=== PATIENT | female | born 1990 | race Two or more races ===

== ENCOUNTER 2017-11-23 22:49 | Emergency (ER) | payer SELFPAY ==
[~2017-11-23] VITALS: Ht 157.5 cm; Wt 58.0 kg
[2017-11-23 23:28] VITALS: BP 96/57
== END 2017-11-24 02:44 | disposition left against medical advice (07) ==
LOC: EDBD 22:49 → ER 22:49
DX: R10.9 Unspecified abdominal pain (principal); Z53.21 Procedure and treatment not carried out due to patient leaving prior to being seen by health care provider

== ENCOUNTER 2018-05-07 11:23 | Observation (INO) | payer OTHER ==
[~2018-05-07 11:23] MED LIST: FOLI20CA MT; PREN-142 MT
== END 2018-05-07 14:00 | disposition home or self-care (01) ==
LOC: L&D 11:23
PROVIDERS: ADMIT Specialist; ATTEND Specialist
DX: O42.913 Preterm premature rupture of membranes, unspecified as to length of time between rupture and onset of labor, third trimester (principal); Z3A.31 31 weeks gestation of pregnancy
CPT/HCPCS: 76815; G0378; 99281

== ENCOUNTER 2018-05-25 23:11 | Observation (INO) | payer OTHER ==
[~2018-05-25] VITALS: Ht 160 cm; Wt 68.9 kg
[2018-05-25] MEDS ORDERED: FERR236T3 MT (23:52)
== END 2018-05-26 02:30 | disposition home or self-care (01) ==
LOC: 8 EST LDRP 23:11
PROVIDERS: ADMIT Specialist; ATTEND Specialist
DX: O36.8130 Decreased fetal movements, third trimester, not applicable or unspecified (principal); O26.893 Other specified pregnancy related conditions, third trimester; N89.8 Other specified noninflammatory disorders of vagina; Z3A.33 33 weeks gestation of pregnancy
CPT/HCPCS: 76815; 76818; 99281; G0378

== ENCOUNTER 2018-06-07 21:59 | Observation (INO) | payer OTHER ==
[~2018-06-07] VITALS: Ht 3 cm; Wt 72.6 kg
[~2018-06-07 21:59] MED LIST changes: +FERR236T3 MT; -FOLI20CA MT
[2018-06-08 02:03] LABS: CLARITY URINE CLEAR (CLEAR); COLOR URINE YELLOW (YELLOW); KETONES URINE NEGATIVE (NEGATIVE); LEUKOCYTE ESTERASE URINE TRACE (NEGATIVE); NITRITE URINE NEGATIVE (NEGATIVE); OCCULT BLOOD URINE NEGATIVE (NEGATIVE); PH URINE 6.5 (4.5-8.0); PROTEIN URINE NEGATIVE (NEGATIVE); SPECIFIC GRAVITY URINE 1.002 (1.005-1.030); UROBILINOGEN URINE 0.2 E.U./dL (0.2-1.0)
== END 2018-06-08 03:00 | disposition home or self-care (01) ==
LOC: 8 EST LDRP 21:59
PROVIDERS: ADMIT Specialist; ATTEND Specialist
DX: O36.8130 Decreased fetal movements, third trimester, not applicable or unspecified (principal); O62.9 Abnormality of forces of labor, unspecified; Z3A.35 35 weeks gestation of pregnancy
CPT/HCPCS: 76815; 76818; 81003; 99281; G0378

== ENCOUNTER 2018-06-22 18:27 | Observation (INO) | payer OTHER ==
[~2018-06-22] VITALS: Ht 157.5 cm; Wt 75.7 kg
== END 2018-06-22 20:30 | disposition home or self-care (01) ==
LOC: 8 EST LDRP 18:27
PROVIDERS: ADMIT Specialist; ATTEND Specialist
DX: O26.853 Spotting complicating pregnancy, third trimester (principal); Z3A.37 37 weeks gestation of pregnancy
CPT/HCPCS: 99281; G0378

== ENCOUNTER 2018-07-14 10:22 | Inpatient (IN) | payer OTHER ==
[~2018-07-14] VITALS: Ht 160 cm; Wt 78.0 kg
[2018-07-14] MEDS ORDERED: LACTATED RINGERS 1,000 ML IV SCH ×2 (11:44→12:00)
[2018-07-14] MEDS ORDERED: CARBOPROST TROMETHAMINE 250 MCG/ML AMPUL IM PRN (11:45)
[2018-07-14] MEDS ORDERED: METHYLERGONOVINE MALEATE 0.2 MG/ML IM PRN ×2 (11:45→19:45)
[2018-07-14] MEDS ORDERED: LIDOCAINE HCL 1% 20ML VIAL (Pyxis) INJ INFIL SCH (11:45)
[2018-07-14] MEDS ORDERED: BUTORPHANOL TARTRATE 2 MG/ML VIAL IV PRN (11:45)
[2018-07-14] MEDS ORDERED: NALOXONE HCL 0.4 MG/ML 1ML VIAL IM PRN (11:45)
[2018-07-14 12:29] LABS: BASOPHILS % 0.7 % (0.0-2.0); EOSINOPHILS % 0.8 % (0.0-5.0); HEMATOCRIT. 36.1 % (36.0-48.0); HEMOGLOBIN. 11.9 g/dL (12.0-16.0); LYMPHOCYTES % 24.4 % (20.0-50.0); MEAN CORPUSCULAR HEMOGLOBIN 26.6 pg (28.0-32.0); MEAN CORPUSCULAR VOLUME 80.4 fL (81.0-99.0); MEAN PLATELET VOLUME 10.7 fl (7.4-10.4); MONOCYTES % 5.2 % (2.0-8.0); NEUTROPHILS % 68.9 % (40.0-76.0); PLATELET 119 x1000/uL (130-400); RED BLOOD CELL COUNT 4.49 mill/uL (4.2-5.4); RED CELL DISTRIBUTION WIDTH 13.5 % (11.6-14.6)
[2018-07-14 12:33] LABS: CLARITY URINE CLEAR (CLEAR); COLOR URINE YELLOW (YELLOW); KETONES URINE NEGATIVE (NEGATIVE); LEUKOCYTE ESTERASE URINE 3+ (NEGATIVE); NITRITE URINE NEGATIVE (NEGATIVE); OCCULT BLOOD URINE NEGATIVE (NEGATIVE); PROTEIN URINE NEGATIVE (NEGATIVE); SPECIFIC GRAVITY URINE 1.005 (1.005-1.030); UROBILINOGEN URINE 0.2 E.U./dL (0.2-1.0)
[2018-07-14 12:38] LABS: INR 0.9; PARTIAL THROMBOPLASTIN TIME 25.7 sec (23.4-31.0); PROTHROMBIN TIME 9.3 sec (9.1-11.1)
[2018-07-14] MEDS: DEXT 5%/LR + PITOCIN 20UNITS/L 1,000 ML IV SCH ×2 (12:45→19:54)
[2018-07-14 12:52] LABS: *BARBITURATES SCREEN URINE NEGATIVE (NEGATIVE); *BENZODIAZEPINES SCREEN URINE NEGATIVE (NEGATIVE); *COCAINE SCREEN URINE NEGATIVE (NEGATIVE); OPIATES URINE SCREEN NEGATIVE (NEGATIVE)
[2018-07-14 12:53] LABS: *AMPHETAMINES SCREEN URINE NEGATIVE (NEGATIVE); CANNABINOID URINE SCREEN NEGATIVE (NEGATIVE); METHADONE URINE SCREEN NEGATIVE (NEGATIVE); PHENCYCLIDINE URINE SCREEN NEGATIVE (NEGATIVE)
[2018-07-14 15:41] LABS: HEPATITIS B SURFACE ANTIGEN NEGATIVE
[2018-07-14] MEDS ORDERED: DEXT 5%/LR + PITOCIN 20UNITS/L 1,000 ML IV SCH (19:33)
[2018-07-14] MEDS ORDERED: RHO(D) IMMUNE GLOBULIN 300 MCG/SYR IM PRN (19:45)
[2018-07-14] MEDS ORDERED: LANOLIN OINT 0.25 GM TUBE TOP PRN (19:45)
[2018-07-14] MEDS ORDERED: IBUPROFEN 400MG TABLET PO PRN (19:45)
[2018-07-14] MEDS: IBUPROFEN 800MG TABLET PO PRN (19:52)
[2018-07-14 21:05] VITALS: BP 102/54
[2018-07-14 21:45] VITALS: BP 102/55
[2018-07-14 22:30] VITALS: BP 91/58
[2018-07-15] MEDS: IBUPROFEN 800MG TABLET PO PRN ×4 (00:27→21:44)
[2018-07-15 04:30] VITALS: BP 100/50
[2018-07-15 07:30] LABS: BASOPHILS % 0.2 % (0.0-2.0); EOSINOPHILS % 0.3 % (0.0-5.0); HEMOGLOBIN. 8.5 g/dL (12.0-16.0); LYMPHOCYTES % 12.3 % (20.0-50.0); MEAN CORPUSCULAR HEMOGLOBIN 26.3 pg (28.0-32.0); MEAN CORPUSCULAR VOLUME 80.1 fL (81.0-99.0); MEAN PLATELET VOLUME 10.8 fl (7.4-10.4); MONOCYTES % 5.5 % (2.0-8.0); NEUTROPHILS % 81.7 % (40.0-76.0); PLATELET 112 x1000/uL (130-400); RED BLOOD CELL COUNT 3.24 mill/uL (4.2-5.4); RED CELL DISTRIBUTION WIDTH 13.4 % (11.6-14.6)
[2018-07-15 08:00] VITALS: BP 100/52
[2018-07-15] MEDS: PRENATAL VIT/FE FUMARATE/FA TABLET PO SCH (15:30)
[2018-07-15 16:08] VITALS: BP 93/45
[2018-07-15 20:00] VITALS: BP 95/45
[2018-07-15] MEDS ORDERED: BENZOCAINE/LANOLIN/ALOE VERA SPRAY TOP PRN (20:30)
[2018-07-15] MEDS ORDERED: GLYCERIN/WITCH HAZEL LEAF MEDICATED PAD TOP PRN (20:30)
[2018-07-16 04:00] VITALS: BP 100/50
[2018-07-16] MEDS: IBUPROFEN 800MG TABLET PO PRN (06:13)
[2018-07-16 07:47] VITALS: BP 96/51
[2018-07-16] MEDS: PRENATAL VIT/FE FUMARATE/FA TABLET PO SCH (08:58)
== END 2018-07-16 13:10 | disposition home or self-care (01) | DRG 806 ==
LOC: OBSVTOIN 10:22 → 8 EST LDRP 10:22 → 8EST 20:50
PROVIDERS: ADMIT Obstetrics & Gynecology; ATTEND Obstetrics & Gynecology
PROC: 10E0XZZ Delivery of Products of Conception, External Approach (ICD-10-PCS; principal; 2018-07-14)
PROC: 0W8NXZZ Division of Female Perineum, External Approach (ICD-10-PCS; 2018-07-14)
DX: O48.0 Post-term pregnancy (principal); D62 Acute posthemorrhagic anemia; Z37.0 Single live birth; Z3A.41 41 weeks gestation of pregnancy
CPT/HCPCS: 36415; 80305; 86592; 86703; 86762; 86850; 86870; 86886; 86900; 87340; 90384; 99281; G0378; J0595; J2310; J2590; J3490; J7120

== ENCOUNTER 2019-07-06 10:37 | Emergency (ER) | payer OTHER ==
[~2019-07-06] VITALS: Ht 160 cm; Wt 59.0 kg
[2019-07-06] MEDS ORDERED: SODIUM CHLORIDE 0.9% 1,000 ML IV ONE ×2 (15:52→18:24)
[2019-07-06] MEDS ORDERED: ACETAMINOPHEN 325MG TABLET PO ONE (16:00)
[2019-07-06] MEDS ORDERED: ONDANSETRON HCL 4MG/2ML INJ IV ONE ×2 (16:00→18:30)
[2019-07-06 16:35] LABS: CLARITY URINE CLOUDY (CLEAR); COLOR URINE DARK YELLOW (YELLOW); KETONES URINE 4+ (NEGATIVE); LEUKOCYTE ESTERASE URINE 2+ (NEGATIVE); NITRITE URINE NEGATIVE (NEGATIVE); OCCULT BLOOD URINE TRACE (NEGATIVE); PH URINE 5.5 (4.5-8.0); PROTEIN URINE 1+ (NEGATIVE); SPECIFIC GRAVITY URINE 1.035 (1.005-1.030)
[2019-07-06 18:04] LABS: BASOPHILS % 0.8 % (0.0-2.0); EOSINOPHILS % 2.6 % (0.0-5.0); HEMATOCRIT. 35.3 % (36.0-48.0); HEMOGLOBIN. 11.8 g/dL (12.0-16.0); LYMPHOCYTES % 46.6 % (20.0-50.0); MEAN CORPUSCULAR HEMOGLOBIN 25.8 pg (28.0-32.0); MEAN CORPUSCULAR VOLUME 77.1 fL (81.0-99.0); MEAN PLATELET VOLUME 8.6 fl (7.4-10.4); PLATELET 230 x1000/uL (130-400); RED BLOOD CELL COUNT 4.58 mill/uL (4.2-5.4); RED CELL DISTRIBUTION WIDTH 13.7 % (11.6-14.6)
[2019-07-06 18:10] LABS: CHLORIDE 111 mEq/L (98-107)
[2019-07-06 18:34] LABS: B-HCG QUANTITATIVE 83421 mIU/mL (<3)
[2019-07-06] MEDS ORDERED: FAMOTIDINE 20MG TABLET PO ONE (19:15)
[2019-07-07 00:14] LABS: HEMATOCRIT 34.3 % (36.0-48.0); HEMOGLOBIN 11.7 g/dL (12.0-16.0); MEAN CORPUSCULAR HEMOGLOBIN 26.2 pg (28.0-32.0); MEAN CORPUSCULAR VOLUME 77.1 fL (81.0-99.0); PLATELET 231 x1000/uL (130-400); RED BLOOD CELL COUNT 4.45 mill/uL (4.2-5.4); RED CELL DISTRIBUTION WIDTH 13.7 % (11.6-14.6)
[2019-07-07] MEDS ORDERED: FAMOTIDINE 20MG/2ML VIAL IV SCH (01:00)
[2019-07-07] MEDS ORDERED: VISCOUS LIDOCAINE 2% 15 ML UDC MM SCH (01:00)
[2019-07-07] MEDS ORDERED: MAGNESIUM/ALUMINUM HYDROXIDE/SIMETHICONE 30ML UDC PO SCH (01:00)
[2019-07-07] MEDS ORDERED: CEFTRIAXONE 1 G PREMIX 50 ML IV SCH (01:00)
[2019-07-07 03:38] VITALS: BP 99/42
== END 2019-07-07 03:45 | disposition home or self-care (01) ==
LOC: ER 13:14
DX: O26.891 Other specified pregnancy related conditions, first trimester (principal); O21.9 Vomiting of pregnancy, unspecified; Z3A.01 Less than 8 weeks gestation of pregnancy
CPT/HCPCS: 36415; 76801; 76817; 80053; 81003; 81025; 84702; 85025; 85027; 87086; 87106; 96361; 96365; 96375; 96376; 99284; J2405; J3490; J7030

== ENCOUNTER 2020-01-03 02:36 | Observation (INO) | payer OTHER ==
[~2020-01-03] VITALS: Ht 157.5 cm; Wt 66.7 kg
[~2020-01-03 02:36] MED LIST changes: -FERR236T3 MT; +ONDA4TAB11 PO; -PREN-142 MT; +PROT40 MT
[2020-01-03] MEDS ORDERED: CITRIC ACID/SODIUM CITRATE SOLN 30ML UDC PO SCH (04:00)
[2020-01-03 07:25] LABS: CHLORIDE 111 mEq/L (98-107)
[2020-01-03 07:28] LABS: AMYLASE 125 IU/L (25-115)
[2020-01-03 07:29] LABS: BASOPHILS % 0.4 % (0.0-2.0); EOSINOPHILS % 0.6 % (0.0-5.0); HEMATOCRIT. 34.9 % (36.0-48.0); HEMOGLOBIN. 11.6 g/dL (12.0-16.0); LYMPHOCYTES % 21.8 % (20.0-50.0); MEAN CORPUSCULAR HEMOGLOBIN 26.5 pg (28.0-32.0); MEAN CORPUSCULAR VOLUME 79.4 fL (81.0-99.0); MEAN PLATELET VOLUME 10.9 fl (7.4-10.4); MONOCYTES % 4.8 % (2.0-8.0); NEUTROPHILS % 72.4 % (40.0-76.0); PLATELET 128 x1000/uL (130-400); RED BLOOD CELL COUNT 4.39 mill/uL (4.2-5.4); RED CELL DISTRIBUTION WIDTH 13.4 % (11.6-14.6)
[2020-01-03] MEDS ORDERED: LACTATED RINGERS 1,000 ML IV SCH (07:30)
[2020-01-03] MEDS ORDERED: TERBUTALINE SULFATE 1MG/ML VIAL SUBCUT NR (08:11)
== END 2020-01-03 09:40 | disposition home or self-care (01) ==
LOC: 8 EST LDRP 02:36
PROVIDERS: ADMIT Specialist; ATTEND Specialist
DX: O26.893 Other specified pregnancy related conditions, third trimester (principal); R10.10 Upper abdominal pain, unspecified; Z3A.29 29 weeks gestation of pregnancy
CPT/HCPCS: 36415; 59025; 76705; 76805; 76817; 76818; 80053; 82150; 83690; 85025; 96360; 96361; 96372; G0378; J3105; 59412; 99281

== ENCOUNTER 2020-01-14 19:48 | Observation (INO) | payer OTHER ==
[~2020-01-14] VITALS: Ht 157.5 cm; Wt 57.6 kg
[2020-01-14] MEDS ORDERED: PREN-182 PO (20:34)
== END 2020-01-14 23:40 | disposition home or self-care (01) ==
LOC: L&D 19:48 → 8 EST A/PP 20:30
PROVIDERS: ADMIT Specialist; ATTEND Specialist
DX: Z34.93 Encounter for supervision of normal pregnancy, unspecified, third trimester (principal); Z3A.39 39 weeks gestation of pregnancy
CPT/HCPCS: 36415; 59025; 86886; 90384; 96372; G0378; 99281

== ENCOUNTER 2020-02-13 15:27 | Observation (INO) | payer OTHER ==
[~2020-02-13 15:27] MED LIST changes: +PREN-182 PO
== END 2020-02-13 18:00 | disposition home or self-care (01) ==
LOC: 8 EST LDRP 15:27
PROVIDERS: ADMIT Specialist; ATTEND Specialist
DX: O34.63 Maternal care for abnormality of vagina, third trimester (principal); Z3A.39 39 weeks gestation of pregnancy
CPT/HCPCS: 59025; G0378; 99281

== ENCOUNTER 2020-02-20 03:10 | Inpatient (IN) | payer OTHER ==
[~2020-02-20] VITALS: Ht 157.5 cm; Wt 69.9 kg
[2020-02-20] MEDS ORDERED: BUTORPHANOL TARTRATE 2 MG/ML VIAL IV PRN (06:45)
[2020-02-20] MEDS ORDERED: METHYLERGONOVINE MALEATE 0.2 MG/ML IM PRN (06:45)
[2020-02-20] MEDS ORDERED: NALOXONE HCL 0.4 MG/ML 1ML VIAL IM PRN (06:45)
[2020-02-20] MEDS ORDERED: CARBOPROST TROMETHAMINE 250 MCG/ML AMPUL IM PRN (06:45)
[2020-02-20] MEDS ORDERED: LIDOCAINE HCL 1% 20ML VIAL (Pyxis) INJ INFIL SCH (06:45)
[2020-02-20] MEDS ORDERED: RHO(D) IMMUNE GLOBULIN 300 MCG/SYR IM ONE (06:45)
[2020-02-20 07:28] LABS: BASOPHILS % 0.5 % (0.0-2.0); EOSINOPHILS % 1.2 % (0.0-5.0); HEMATOCRIT. 35.9 % (36.0-48.0); HEMOGLOBIN. 11.8 g/dL (12.0-16.0); LYMPHOCYTES % 24.1 % (20.0-50.0); MEAN CORPUSCULAR HEMOGLOBIN 26.8 pg (28.0-32.0); MEAN CORPUSCULAR VOLUME 81.4 fL (81.0-99.0); MEAN PLATELET VOLUME 11.4 fl (7.4-10.4); MONOCYTES % 6.2 % (2.0-8.0); PLATELET 96 x1000/uL (130-400); RED BLOOD CELL COUNT 4.41 mill/uL (4.2-5.4); RED CELL DISTRIBUTION WIDTH 14.9 % (11.6-14.6)
[2020-02-20 07:49] LABS: CLARITY URINE CLEAR (CLEAR); COLOR URINE YELLOW (YELLOW); KETONES URINE NEGATIVE (NEGATIVE); LEUKOCYTE ESTERASE URINE NEGATIVE (NEGATIVE); NITRITE URINE NEGATIVE (NEGATIVE); OCCULT BLOOD URINE NEGATIVE (NEGATIVE); PH URINE 6.5 (4.5-8.0); PROTEIN URINE NEGATIVE (NEGATIVE); SPECIFIC GRAVITY URINE 1.011 (1.005-1.030); UROBILINOGEN URINE 0.2 E.U./dL (0.2-1.0)
[2020-02-20 07:54] LABS: INR 0.9; PARTIAL THROMBOPLASTIN TIME 26.8 sec (23.4-31.0); PROTHROMBIN TIME 9.4 sec (9.6-11.0)
[2020-02-20 08:02] LABS: *AMPHETAMINES SCREEN URINE NEGATIVE (NEGATIVE)
[2020-02-20 08:03] LABS: *BARBITURATES SCREEN URINE NEGATIVE (NEGATIVE); *BENZODIAZEPINES SCREEN URINE NEGATIVE (NEGATIVE); *COCAINE SCREEN URINE NEGATIVE (NEGATIVE); METHADONE URINE SCREEN NEGATIVE (NEGATIVE); OPIATES URINE SCREEN NEGATIVE (NEGATIVE)
[2020-02-20 08:04] LABS: CANNABINOID URINE SCREEN NEGATIVE (NEGATIVE); PHENCYCLIDINE URINE SCREEN NEGATIVE (NEGATIVE)
[2020-02-20 08:11] LABS: HEPATITIS B SURFACE ANTIGEN NEGATIVE
[2020-02-20] MEDS: DEXT 5%/LR + PITOCIN 20UNITS/L 1,000 ML IV SCH ×2 (09:47→17:30)
[2020-02-20] MEDS: LACTATED RINGERS 1,000 ML IV SCH ×2 (09:48→09:50)
[2020-02-20] MEDS ORDERED: CITRIC ACID/SODIUM CITRATE SOLN 30ML UDC PO SCH (15:30)
[2020-02-20] MEDS ORDERED: DEXT 5%/LR + PITOCIN 20UNITS/L 1,000 ML IV SCH (17:45)
[2020-02-20] MEDS ORDERED: LANOLIN OINT 7GM TUBE TOP PRN (17:45)
[2020-02-20] MEDS ORDERED: IBUPROFEN 400MG TABLET PO PRN (17:45)
[2020-02-20] MEDS ORDERED: RHO(D) IMMUNE GLOBULIN 300 MCG/SYR IM PRN (17:45)
[2020-02-20] MEDS ORDERED: IBUPROFEN 800MG TABLET PO PRN (17:45)
[2020-02-20 18:20] VITALS: BP 101/60
[2020-02-20 18:48] VITALS: BP 100/61
[2020-02-20 19:15] VITALS: BP 97/65
[2020-02-20 23:38] VITALS: BP 102/65
[2020-02-20] MEDS: IBUPROFEN 800MG TABLET PO PRN (23:39)
[2020-02-21 03:00] VITALS: BP 105/66
[2020-02-21] MEDS ORDERED: BENZOCAINE/LANOLIN/ALOE VERA SPRAY TOP PRN (06:45)
[2020-02-21 07:38] VITALS: BP 90/55
[2020-02-21] MEDS: IBUPROFEN 800MG TABLET PO PRN (08:14)
[2020-02-21] MEDS ORDERED: PRENATAL VIT/FE FUMARATE/FA TABLET PO SCH (09:00)
[2020-02-21 09:27] LABS: BASOPHILS % 0.3 % (0.0-2.0); EOSINOPHILS % 0.6 % (0.0-5.0); HEMATOCRIT. 33.9 % (36.0-48.0); HEMOGLOBIN. 11.1 g/dL (12.0-16.0); LYMPHOCYTES % 12.3 % (20.0-50.0); MEAN CORPUSCULAR HEMOGLOBIN 26.4 pg (28.0-32.0); MEAN CORPUSCULAR VOLUME 80.4 fL (81.0-99.0); MEAN PLATELET VOLUME 11.2 fl (7.4-10.4); MONOCYTES % 4.8 % (2.0-8.0); PLATELET 108 x1000/uL (130-400); RED BLOOD CELL COUNT 4.22 mill/uL (4.2-5.4)
[2020-02-21 16:22] VITALS: BP 98/55
== END 2020-02-21 16:30 | disposition home or self-care (01) | DRG 806 ==
LOC: OBSVTOIN 03:10 → 8 EST LDRP 03:10 → 8EST 18:03
PROVIDERS: ADMIT Specialist; ATTEND Specialist
PROC: 10E0XZZ Delivery of Products of Conception, External Approach (ICD-10-PCS; principal; 2020-02-20)
PROC: 0HQ9XZZ Repair Perineum Skin, External Approach (ICD-10-PCS; 2020-02-20)
PROC: 30233S1 Transfusion of Nonautologous Globulin into Peripheral Vein, Percutaneous Approach (ICD-10-PCS; 2020-02-20)
DX: O99.12 Other diseases of the blood and blood-forming organs and certain disorders involving the immune mechanism complicating childbirth (principal); D62 Acute posthemorrhagic anemia; Z37.0 Single live birth; O69.81X0 Labor and delivery complicated by cord around neck, without compression, not applicable or unspecified; D69.6 Thrombocytopenia, unspecified; O99.02 Anemia complicating childbirth; O70.0 First degree perineal laceration during delivery; Z3A.39 39 weeks gestation of pregnancy
CPT/HCPCS: 36415; 80305; 81003; 85025; 86592; 86703; 86762; 86850; 86870; 86886; 86900; 87340; 90384; 99281; J0595; J2210; J2310; J2590; J3490; J7120

== ENCOUNTER 2021-04-29 13:36 | Emergency (ER) | payer OTHER ==
[~2021-04-29] VITALS: Ht 157.5 cm; Wt 62.0 kg
[~2021-04-29 13:36] MED LIST changes: -ONDA4TAB11 PO
[2021-04-29 14:02] VITALS: BP 111/62
[2021-04-29 16:58] LABS: CLARITY URINE CLEAR (CLEAR); COLOR URINE YELLOW (YELLOW); KETONES URINE 1+ (NEGATIVE); LEUKOCYTE ESTERASE URINE NEGATIVE (NEGATIVE); NITRITE URINE NEGATIVE (NEGATIVE); OCCULT BLOOD URINE TRACE (NEGATIVE); PROTEIN URINE NEGATIVE (NEGATIVE); SPECIFIC GRAVITY URINE 1.013 (1.005-1.030); UROBILINOGEN URINE 0.2 E.U./dL (0.2-1.0)
[2021-04-29] MEDS ORDERED: IBUP-2741 MT (17:46)
[2021-04-29] MEDS ORDERED: ONDA4TAB5 MT (17:46)
[2021-04-29] MEDS ORDERED: ONDANSETRON 4MG ODT PO NR (18:00)
== END 2021-04-29 18:12 | disposition home or self-care (01) ==
LOC: ER 13:36
DX: R10.84 Generalized abdominal pain (principal)
CPT/HCPCS: 76770; 81003; 81025; 99284; Q0162

== ENCOUNTER 2025-02-17 09:25 | Emergency (ER) | payer OTHER ==
[~2025-02-17] VITALS: Ht 157.5 cm; Wt 63.0 kg
[~2025-02-17 09:25] MED LIST changes: +IBUP-2741 MT; +ONDA4TAB5 MT
[2025-02-17 09:33] VITALS: O2SAT 99
[2025-02-17 10:55] LABS: BASOPHILS % 1.2 % (0.0-2.0); EOSINOPHILS % 2.3 % (0.0-5.0); HEMATOCRIT. 37.2 % (36.0-48.0); HEMOGLOBIN. 12.2 g/dL (12.0-16.0); LYMPHOCYTES % 36.6 % (20.0-50.0); MEAN PLATELET VOLUME 9.1 fl (7.4-10.4); MONOCYTES % 7.9 % (2.0-8.0); NEUTROPHILS % 52.0 % (40.0-76.0); PLATELET 236 x1000/uL (130-400); RED BLOOD CELL COUNT 4.81 mill/uL (4.2-5.4); RED CELL DISTRIBUTION WIDTH 13.3 % (11.6-14.6)
[2025-02-17] MEDS: SODIUM CHLORIDE 0.9% 1,000 ML IV ONE (10:55)
[2025-02-17] MEDS: ONDANSETRON HCL 4MG/2ML INJ IV ONE (10:55)
[2025-02-17 11:05] LABS: CREATININE 0.5 mg/dL (0.6-1.0); UREA NITROGEN BLOOD 5 mg/dL (9-23)
[2025-02-17 11:07] LABS: ASPARTATE AMINOTRANSFERASE 18 IU/L (<34); BILIRUBIN DIRECT 0.1 mg/dL (<=3.0); BILIRUBIN TOTAL 0.4 mg/dL (0.1-1.0)
[2025-02-17 11:08] LABS: PROTEIN TOTAL 7.1 g/dL (6.0-8.3)
[2025-02-17 11:26] LABS: B-HCG QUANTITATIVE > 1000 mIU/mL (<6)
[2025-02-17 14:40] LABS: CLARITY URINE CLEAR (CLEAR); COLOR URINE YELLOW (YELLOW); GLUCOSE URINE NEGATIVE (NEGATIVE); KETONES URINE 3+ (NEGATIVE); LEUKOCYTE ESTERASE URINE NEGATIVE (NEGATIVE); NITRITE URINE NEGATIVE (NEGATIVE); OCCULT BLOOD URINE TRACE (NEGATIVE); PH URINE 5.5 (4.5-8.0); PROTEIN URINE NEGATIVE (NEGATIVE); SPECIFIC GRAVITY URINE 1.022 (1.005-1.030); UROBILINOGEN URINE 0.2 E.U./dL (0.2-1.0)
[2025-02-17 14:51] LABS: BACTERIA URINE 1+; MUCUS URINE 1+ /lpf (< = 2+); RBC URINE 0-2 /hpf (0-2); SQUAMOUS EPITHELIAL CELL URINE 2+ /lpf (RARE/1+); WBC URINE 0-2 /hpf (0-2); YEAST URINE NONE SEEN
[2025-02-17] MEDS ORDERED: ONDA4TAB50 MT (15:15)
[2025-02-17] MEDS ORDERED: CEPH500C2 MT (15:15)
[2025-02-17 15:31] VITALS: BP 94/53; PULSE 57; RESP 16; TEMP 36.7; O2SAT 99
== END 2025-02-17 15:33 | disposition home or self-care (01) ==
LOC: ER 09:25
DX: O21.9 Vomiting of pregnancy, unspecified (principal); O23.11 Infections of bladder in pregnancy, first trimester; R10.2 Pelvic and perineal pain; Z79.899 Other long term (current) drug therapy; Z90.49 Acquired absence of other specified parts of digestive tract; Z3A.01 Less than 8 weeks gestation of pregnancy
CPT/HCPCS: 80076; 80048; 81003; 84702; 85025; 86850; 86900; 86901; 36415; 76801; 76817; 96361; 96374; 99285; J2405; J7030; Z7610